=== PATIENT | male | born 1955 | race Caucasian/White ===

== ENCOUNTER → 2019-06-17 | Outpatient (CLI) | payer OTHER ==
--- NOTE | 2019-06-17 15:22 | RADIOLOGY REPORT (SQ) ---
EXAM DESCRIPTION: U/S RETROPERITON (RENAL/AORTA) COMPLETED DATE/TIME: 06/17/2019 3:09 pm REASON FOR STUDY: (Z87.442)PERSONAL HISTORY OF URINARY CALCULI Z87.442 PERSONAL HISTORY OF URINARY CALCULI M50.30 OTHER CERVICAL DISC DEGENERATION, UNSP CERVICAL REGIO COMPARISON: None. TECHNIQUE: Dynamic and static grayscale images acquired of the kidneys and bladder and recorded on P ACS. Additional selected color Doppler and spectral images recorded. LIMITATIONS: None. FINDINGS: RIGHT KIDNEY: Small size, 7.4 cm. Normal echogenicity. No solid or suspicious masses. No h ydronephrosis. No calcifications. LEFT KIDNEY: Small size, 6.6 cm. Normal echogenicity. No solid or suspicious masses. No hydronephro sis. There are 2 echogenic foci. The larger measures 7 mm. BLADDER: Prevoid volume 172 cc. Postvoid volume 42 cc. Ureteral jets are seen. OTHER FINDINGS: No other significant finding. IMPRESSION: Both kidneys are small. There are a couple of intrarenal calculi on the left. Bilatera l ureteral jets are seen. No bladder mass. TECHNICAL DOCUMENTATION: JOB ID: [id number] [employer]- All Rights Reserved Reading location - IP/workstation name: [email or web address]
--- NOTE | 2019-06-17 16:57 | RADIOLOGY REPORT (SQ) ---
EXAM DESCRIPTION: MRI CERVICAL SPINE WITHOUT COMPLETED DATE/TIME: 06/17/2019 3:40 pm REASON FOR STUDY: (M50.30)OTHER CERVICAL DISC DEGENERATION, UNSP CERVICAL REGION Z87.442 PERSONAL H ISTORY OF URINARY CALCULI M50.30 OTHER CERVICAL DISC DEGENERATION, UNSP CERVICAL REGIO COMPARISON: None. TECHNIQUE: Sagittal and Axial imaging includes T1, T2, STIR and gradient echo sequences. LIMITATIONS: None. FINDINGS: ALIGNMENT: Normal. VERTEBRAE: Intact. BONE MARROW: Normal. No marrow replacement or reactive changes. DISCS: Diffuse decreased T2 weighted intervertebral disc signal. Disc space loss of height at C4-5, C5-6, and C6-7 HARDWARE: None in the spine. CORD AND BASE OF BRAIN: Normal in size and signal intensity. SOFT TISSUES: No soft tissue masses. C1-C2: No significant spinal stenosis. C2-C3: No significant spinal stenosis or exit foraminal stenosis. C3-C4: Moderate bilateral foraminal narrowing from facet and uncovertebral hypertrophy. No central s tenosis. C4-C5: Mild diffuse posterior disc bulge and bony spurring partially effaces the ventral thecal sac a nd abuts the ventral cord without cord flattening or abnormal intrinsic cord signal. Mild central ca nal stenosis best shown on axial T2 image 58. High-grade right, moderate to high-grade left foramina l narrowing from facet and uncovertebral hypertrophy C5-C6: Broad diffuse posterior disc bulge and bony spurring effaces the ventral thecal sac and abuts the ventral cord without cord flattening or abnormal intrinsic cord signal. Borderline central canal stenosis. High-grade bilateral foraminal narrowing from facet and uncovertebral hypertrophy C6-C7: Mild posterior disc bulging is present partially effacing the ventral thecal sac. No cord fla ttening or abnormal intrinsic cord signal. Borderline central canal narrowing. Mild bilateral joana inal narrowing C7-T1: No significant spinal stenosis or exit foraminal stenosis. UPPER THORACIC: Incompletely imaged. No significant spinal stenosis or exit foraminal stenosis. OTHER: No other significant finding. IMPRESSION: Degenerative disc changes with central and foraminal stenosis at multiple levels TECHNICAL DOCUMENTATION: JOB ID: [id number] [employer]- All Rights Reserved Reading location - IP/workstation name: [email or web address]
== END ==
LOC: RAD 14:02
PROVIDERS: ATTEND Family Medicine
DX: M50.323 Other cervical disc degeneration at C6-C7 level (principal); N20.0 Calculus of kidney; Z87.442 Personal history of urinary calculi
CPT/HCPCS: 72141; 76770